=== PATIENT | male | born 1990 ===

== ENCOUNTER 2017-02-03 16:09 | Emergency (ER) | payer OTHER ==
[2017-02-03 16:24] VITALS: BP 116/68
--- NOTE | 2017-02-03 16:59 | UC ---
Skin Complaint HPI - HPI Summary HPI Summary: Patient has a earring on the left pinna. has had it for 3 years. It has been red and swollen for the past 2 days, redness is over the entire ear. very painful - History of Current Complaint Chief Complaint: UCSkin Stated Complaint: LEFT EAR PIERCING SITE ISSUE Hx Obtained From: Patient Onset/Duration: Sudden Onset, Lasting Days Skin Exposure Onset/Duration: Days Ago Timing: Constant Onset Severity: Moderate Current Severity: Severe Location: Discrete - left ear Character: Swelling, Pruritus, Pain Aggravating: Nothing Alleviating: Nothing Related History: Other: - piercing - Allergy/Home Medications Allergies/Adverse Reactions: Allergies Allergy/AdvReac Type Severity Reaction Status Date / Time Amoxicillin Allergy Shortness Verified 02/03/17 16:18 of Breath Aspirin Allergy See Comment Verified 02/03/17 16:18 Review of Systems Constitutional: Negative Skin: Other - infected pinna Eyes: Negative ENT: Negative Respiratory: Negative Cardiovascular: Negative Gastrointestinal: Negative Genitourinary: Negative Motor: Negative Neurovascular: Negative Musculoskeletal: Negative Neurological: Negative Psychological: Negative All Other Systems Reviewed And Are Negative: Yes PMH/Surg Hx/FS Hx/Imm Hx Previously Healthy: Yes - Surgical History Surgical History: Yes Surgery Procedure, Year, and Place: Ablation - Family History Known Family History: Negative: Cardiac Disease, Hypertension - Social History Alcohol Use: Weekly Alcohol Amount: Weekends Substance Use Type: None Smoking Status (MU): Current Every Day Smoker Amount Used/How Often: 1 ppd - Immunization History Most Recent Influenza Vaccination: NONE Most Recent Tetanus Shot: UNK Most Recent Pneumonia Vaccination: N/A Physical Exam Triage Information Reviewed: Yes Appearance: Well-Appearing, Well-Nourished, Pain Distress Vital Signs: Initial Vital Signs Temp 99.2 F 02/03/17 16:18 Pulse 71 02/03/17 16:18 Resp 18 02/03/17 16:18 BP 116/68 02/03/17 16:18 Pulse Ox 100 02/03/17 16:18 Vital Signs Reviewed: Yes Eye Exam: Normal Eyes: Positive: Conjunctiva Clear ENT: Positive: Pharynx normal, TMs normal, TM bulging, Other: - pinna of left ear, warm red and swollen Dental Exam: Normal Neck exam: Normal Neck: Positive: Supple, Nontender, No Lymphadenopathy Respiratory Exam: Normal Respiratory: Positive: Chest non-tender, Lungs clear, Normal breath sounds Cardiovascular Exam: Normal Cardiovascular: Positive: RRR, No Murmur, Pulses Normal Abdominal Exam: Normal Abdomen Description: Positive: Nontender, No Organomegaly, Soft Bowel Sounds: Positive: Present Musculoskeletal Exam: Normal Musculoskeletal: Positive: Strength Intact, ROM Intact, No Edema Neurological Exam: Normal Neurological: Positive: Alert, Muscle Tone Normal Psychological Exam: Normal Skin Exam: Normal Course/Dx - Course Course Of Treatment: hx obtained, exam performed, meds reviewed, i and d of ear abscess. wound culture obtained. - Differential Diagnoses - Skin Complaint Differential Diagnoses: Abscess - Diagnoses Provider Diagnoses: abscess on left ear Discharge - Discharge Plan Condition: Stable Disposition: HOME Patient Education Materials: Abscess (ED) Additional Instructions: take the medication as prescribed. keep the area clean and dry. continue to cover for the next few days until it stops draining. follow up if symptoms do not start to improve.
== END 2017-02-03 17:38 | disposition home or self-care (01) ==
LOC: UCCORT 16:09
DX: H60.02 Abscess of left external ear (principal); Z88.6 Allergy status to analgesic agent; Z88.1 Allergy status to other antibiotic agents; F17.210 Nicotine dependence, cigarettes, uncomplicated
CPT/HCPCS: 10060; 69000; 87070; 87076; 87205; 87640; 87641; 99202; G0463

== ENCOUNTER 2017-03-20 11:45 | Emergency (ER) | payer SELFPAY ==
[2017-03-20 13:08] VITALS: BP 117/72
--- NOTE | 2017-03-20 13:29 | UC ---
Back Pain HPI - HPI Summary HPI Summary: ONSET OF LOWER BACK PAIN YESTERDAY AFTER TWISTING HIS BODY WHILE AT WORK. PT IS A DOG DAYCARE PROVIDER. CONTINUED WORKING YESTERDAY AND TRIED TO GO AGAIN TODAY. NOW STATES HE HAS PAIN RADIATING DOWN BOTH LEGS. CAN NOT FEEL HIS LEGS - STATES THEY ARE TOTALLY NUMB. TYLENOL NOT HELPFUL. PAIN WORSE WITH MVMT AND BENDING OVER. BETTER IF LAYING SUPINE. - History of Current Complaint Chief Complaint: UCBackPain Stated Complaint: BACK PAIN-WC Time Seen by Provider: 03/20/17 13:15 Hx Obtained From: Patient Onset/Duration: Sudden Onset, Lasting Days, Still Present Timing: Constant Severity Initially: Moderate Severity Currently: Moderate Pain Intensity: 10 - WITH MOVEMENT Pain Scale Used: 0-10 Numeric Back Pain: Is Discrete @ - LOW BACK Character: Throbbing Aggravating: Walking Alleviating: Position - LAYING DOWN - Allergies/Home Medications Allergies/Adverse Reactions: Allergies Allergy/AdvReac Type Severity Reaction Status Date / Time Amoxicillin Allergy Shortness Verified 03/20/17 12:53 of Breath Aspirin Allergy See Comment Verified 03/20/17 12:53 Home Medications: Home Medications NK [No Home Medications Reported] 03/20/17 [History Confirmed 03/20/17] PMH/Surg Hx/FS Hx/Imm Hx Endocrine History Of: Denies: Diabetes, Thyroid Disease, Hyperthyroidism, Hypothyroidism, Dyslipidemia Cardiovascular History Of: Reports: Cardiac Disorders - 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[facility]) Denies: Hypertension, Pacemaker/ICD, Myocardial Infarction, Congestive Heart Failure, Atrial Fibrillation, Deep Vein Thrombosis, Bleeding Disorders Respiratory History Of: Denies: COPD, Asthma, Bronchitis, Pneumonia, Pulmonary Embolism GI/ History Of: Denies: Gastroesophageal Reflux, Ulcer, Gastrointestinal Bleed, Gall Bladder Disease, Kidney Stones, Diverticulitis, Renal Disease, Urosepsis Neurological History Of: Denies: TIA, CVA, Dementia, Seizures, Migraine Psychological History Of: Denies: Anxiety, Depression, Bipolar Disorder, Schizophrenia, Post Traumatic Stress Disorder Cancer History Of: Denies: Lung Cancer, Colorectal Cancer, Breast Cancer, Prostate Cancer, Cervical Cancer Other History Of: Negative For: HIV, Hepatitis B, Hepatitis C - Surgical History Surgical History: Yes Surgery Procedure, Year, and Place: Ablation surgery. Glass removed from abdomen as child - Family History Known Family History: Positive: Hypertension Negative: Cardiac Disease - Social History Alcohol Use: Occasionally Alcohol Amount: Weekends Substance Use Type: None Substance Use Comment - Amount & Last Used: maybe once yearly Smoking Status (MU): Heavy Every Day Tobacco Smoker Type: Cigarettes Amount Used/How Often: 1-1 1/2 pack daiy - Immunization History Most Recent Influenza Vaccination: NONE Most Recent Tetanus Shot: UTD Most Recent Pneumonia Vaccination: N/A Review of Systems Constitutional: Negative Respiratory: Negative Cardiovascular: Negative Gastrointestinal: Negative Musculoskeletal: Arthralgia, Decreased ROM, Myalgia All Other Systems Reviewed And Are Negative: Yes Physical Exam Triage Information Reviewed: Yes Appearance: Well-Appearing, No Pain Distress, Well-Nourished Vital Signs: Initial Vital Signs Temp 98.7 F 03/20/17 12:53 Pulse 63 03/20/17 12:53 Resp 16 03/20/17 12:53 BP 117/72 03/20/17 12:53 Pulse Ox 100 03/20/17 12:53 Vital Signs Reviewed: Yes Eyes: Positive: Conjunctiva Clear ENT: Positive: Hearing grossly normal Neck: Positive: Supple Respiratory: Positive: No respiratory distress, No accessory muscle use Cardiovascular: Positive: Pulses Normal Abdomen Description: Positive: Soft Musculoskeletal: Positive: No Edema, ROM Limited @ - BACK, Other: - PT MOVING VERY CAUTIOUSLY Neurological: Positive: Alert, Other: - UNABLE TO PERFORM STRAIGHT LEG RAISE DUE TO PT DISCOMFORT Psychological: Positive: Age Appropriate Behavior Skin: Negative: rashes Back Pain Course/Dx - Course Course Of Treatment: DUE TO PT LEVEL OF DISCOMFORT AND COMPLAINT OF LEG NUMBNESS WILL SEND TO ER FOR FURTHER EVAL. - Differential Dx/Diagnosis Provider Diagnoses: ACUTE LOW BACK PAIN/RADICULOPATHY - Physician Notifications Discussed Patient Care With: JONI COMER NP Time Discussed With Above Provider: 13:35 - TO [place] BY PRIVATE CAR Discharge - Discharge Plan Condition: Stable Disposition: AGAINST MEDICAL ADVICE Referrals: Erika Ivy MD [Primary Care Provider] -
== END 2017-03-20 13:54 | disposition left against medical advice (07) ==
LOC: UCCORT 11:45
DX: M54.5 Low back pain (principal); I45.6 Pre-excitation syndrome; F17.210 Nicotine dependence, cigarettes, uncomplicated; Z88.1 Allergy status to other antibiotic agents; Z88.6 Allergy status to analgesic agent
CPT/HCPCS: 99212; G0463

== ENCOUNTER 2017-12-01 11:22 | Emergency (ER) | payer OTHER ==
[2017-12-01 13:49] VITALS: BP 103/68
--- NOTE | 2017-12-01 14:02 | UC ---
Respiratory Complaint HPI - HPI Summary HPI Summary: cough x 2 days + chest congestion , sore throat, fever, chills, sever body aches - History of Current Complaint Chief Complaint: UCGI Stated Complaint: DIZZY/FATIGUE/NAUSEA Time Seen by Provider: 12/01/17 13:54 Hx Obtained From: Patient Onset/Duration: Gradual Onset, Lasting Days - 2, Still Present Timing: Constant Severity Initially: Severe Severity Currently: Severe Pain Intensity: 10 Character: Cough: Nonproductive Aggravating Factors: Exertion, Deep Breaths Alleviating Factors: Nothing Associated Signs And Symptoms: Positive: Fever, Chills, Dizziness, URI, Nasal Congestion. 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 Glass removed from abdomen as child - Family History Known Family History: Positive: None, Hypertension Negative: Cardiac Disease - Social History Alcohol Use: Weekly Alcohol Amount: Weekends Substance Use Type: None Substance Use Comment - Amount & Last Used: maybe once yearly Smoking Status (MU): Heavy Every Day Tobacco Smoker Type: Cigarettes Amount Used/How Often: 1-1 1/2 pack daiy - Immunization History Most Recent Influenza Vaccination: NONE Most Recent Tetanus Shot: UTD Most Recent Pneumonia Vaccination: N/A Review of Systems Constitutional: Fever, Chills, Fatigue Skin: Negative Eyes: Negative ENT: Sore Throat, Nasal Discharge Respiratory: Cough Cardiovascular: Negative Gastrointestinal: Negative Musculoskeletal: Arthralgia, Myalgia Neurological: Headache, Weakness Is Patient Immunocompromised?: No All Other Systems Reviewed And Are Negative: Yes Physical Exam Triage Information Reviewed: Yes Appearance: Well-Nourished, Pain Distress Vital Signs: Initial Vital Signs Temp 99.8 F 12/01/17 13:45 Pulse 100 12/01/17 13:45 Resp 18 12/01/17 13:45 BP 103/68 12/01/17 13:45 Pulse Ox 99 12/01/17 13:45 Vital Signs Reviewed: Yes Eyes: Positive: Conjunctiva Clear ENT: Positive: Normal ENT inspection, Hearing grossly normal, Pharyngeal erythema, Nasal drainage, TMs normal Neck: Positive: Supple, Nontender, No Lymphadenopathy Respiratory: Positive: Chest non-tender, Lungs clear, Normal breath sounds Cardiovascular: Positive: Tachycardia Abdominal Exam: Normal Abdomen Description: Positive: Nontender, Soft. Negative: CVA Tenderness (R), CVA Tenderness (L), Distended, Guarding Bowel Sounds: Positive: Present Skin Exam: Normal UC Diagnostic Evaluation - Laboratory O2 Sat by Pulse Oximetry: 99 Respiratory Course/Dx - Differential Dx/Diagnosis Provider Diagnoses: influenza Discharge - Discharge Plan Condition: Stable Disposition: HOME Prescriptions: Oseltamivir CAP* [Tamiflu CAP*] 75 mg PO BID #10 cap Patient Education Materials: Influenza (ED) Referrals: Erika Ivy MD [Primary Care Provider] - If Needed
== END 2017-12-01 14:02 | disposition home or self-care (01) ==
LOC: UCCORT 11:22
DX: J11.1 Influenza due to unidentified influenza virus with other respiratory manifestations (principal); F17.210 Nicotine dependence, cigarettes, uncomplicated
CPT/HCPCS: 99212; G0463

== ENCOUNTER 2020-01-11 09:36 | Emergency (ER) | payer OTHER ==
[2020-01-11 10:43] VITALS: BP 125/75
[2020-01-11 10:49] LABS: Influenza A Molecular Negative (Negative); Influenza B Molecular Negative (Negative)
--- OUTSIDE RECORDS SUMMARY | 2020-01-11 10:53 | XMS REPORT | Continuity of Care Document ---
:1990 External Reference #:[id number] Author Name Conchis Ledbetter M.D. Address [address] [place] [address] Problems Description No Information Available Social History Type Date Description Comments Sex Unknown ETOH Use Occasionally consumes alcohol Tobacco Use Start: Unknown Heavy tobacco smoker (more than 10 cigarettes/day) Recreational Drug Use Current Drug User Smoking Status Reviewed: 07/13/19 Heavy tobacco smoker (more than 10 cigarettes/day) Allergies, Adverse Reactions, Alerts Active Allergies Reaction Severity Comments Date Lara Aspirin 07/13/2019 Medications Active Medications SIG Qnty Indications Ordering Provider Date Cipro 1 tab by mouth 14tabs J01.40 Conchis Ledbetter, 11/18/2019 500mg Tablets twice a day M.D. Prednisone 2 tab by mouth 8tabs J01.40 Conchis Ledbetter, 11/18/2019 20mg Tablets daily 4 days M.D. Loratadine J30.9 Unknown 10mg Tablets History Medications Amoxicillin 2 by mouth 40tabs J32.9 Conchis Ledbetter, 07/22/2019 - 500mg twice a day M.D. 07/25/2019 Tablets Prednisone 2 tab by mouth 20tabs J32.9 Conchis Ledbetter, 07/22/2019 - 20mg Tablets daily 4 M.D. 07/25/2019 days,30x3d,20x2 d,10x7d Amoxicillin 2 by mouth 40tabs J32.9 Conchis Ledbetter, 07/13/2019 - 500mg twice a day M.D. 07/22/2019 Tablets Prednisone 2 tab by mouth 20tabs J32.9 Conchis Ledbetter, 07/13/2019 - 20mg Tablets daily 4 M.D. 07/21/2019 days,30x3d,20x2 d,10x7d Immunizations Description No Information Available Vital Signs Date Vital Result Comment 11/18/2019 1:02pm BP Systolic 118 mmHg BP Diastolic 65 mmHg Height 74 inches 6'2" Weight 172.00 lb BMI (Body Mass Index) 22.1 kg/m2 Heart Rate 85 /min Respiratory Rate 16 /min 07/13/2019 1:33pm BP Systolic 118 mmHg BP Diastolic 66 mmHg Height 74 inches 6'2" Weight 172.00 lb BMI (Body Mass Index) 22.1 kg/m2 Heart Rate 83 /min Body Temperature 97.2 F Respiratory Rate 16 /min Results Test Acquired Date Facility Test Result H/L Range Note CBC With Diff 07/13/2019 [facility] WBC 8.9 10*3/uL (4.1-11.0) [address] [facility] (607)- - RBC 4.73 10*6/uL (4.60-6.10) HGB 14.6 g/dL (13.5-18.0) HCT 42.5 % (41.0-53.0) MCV 89.7 fL (80.0-95.0) MCH 30.9 pg (27.0-32.0) MCHC 34.5 g/dL (32.0-36.0) RDW 12.9 % (10.5-14.5) PLT 216 10*3/uL (150-450) MPV 8.7 fL (7.1-10.7) Neut % 67.7 % (35.0-75.0) Lymph % 18.3 % (16.0-52.0) Wells % 9.6 % High (0.0-8.0) Eos % 3.9 % (0.0-5.0) Baso % 0.5 % (0.0-4.0) Neut # 6.0 10*3/uL (1.8-7.7) Lymph # 1.6 10*3/uL (1.2-4.8) Wells # 0.9 10*3/uL High (0.0-0.8) Eos # 0.3 10*3/uL (0.0-0.5) Baso # 0.0 10*3/uL (0.0-0.2) CMP 07/13/2019 [facility] Sodium 140 mmol/L (136-145) [address] [facility] (600)- - Potassium 4.4 mmol/L (3.6-5.2) Chloride 105 mmol/L (100-108) Co2 30 mmol/L (22-31) Anion Gap 5 mmol/L Low (7-16) Urea Nitrogen 10 mg/dL (7-24) Creatinine 0.82 mg/dL (0.80-1.30) BUN/Creat Ratio 12.2 RATIO (10.0-20.0) Glucose 71 mg/dL (70-99) Calcium 8.6 mg/dL (8.4-10.2) Total Protein 7.4 g/dL (6.4-8.2) Albumin 4.0 g/dL (3.5-4.6) Globulin 3.4 g/dL (2.7-4.3) Alb/Glob Ratio 1.2 RATIO Alkaline Phosphatase 90 U/L (45-117) Bilirubin,Total 0.3 mg/dL (0.0-1.0) Ast (Sgot) 18 U/L (11-39) Alt (SGPT) 26 U/L (12-78) GFR >60 ml/min/1.73m2 (>59) GFR ( Amer) >60 ml/min/1.73m2 (>59) GFR Interpretation <SEE NOTE> 1 Georgina By Ifa 07/13/2019 [facility] Homogeneous Pattern <50 2 [address] [facility] (190)- - Speckled Pattern <50 3 Peripheral Pattern <50 4 Nucleolar Pattern <50 5 Laboratory test 07/13/2019 [facility] Rheumatoid Factor <15 IU/mL (0- 15) finding [address] [facility] @ (606)- - TSH,Ultrasensitive @ 1.060 mIU/L (0.360-4.170) Free Thyroxine @ 1.20 ng/dL (0.76-1.46) Lyme Disease 07/13/2019 [facility] Lyme Igm/Igg AB @ NEGATIVE (Neg) 6 Antibodies Igg/Igm [address] [facility] (231)- - Thyroid Antibody 07/13/2019 [facility] Thyroglobulin AB @ <20 IU/mL (< 40) And Peroxidase [address] [facility] (793)- - Thyr Peroxidase AB @ <10 IU/mL (<35) Laboratory test finding 07/13/2019 [facility] Esr 6 mm/h (0-15) Clar[facility] (607)- - 25 Hydroxy Vit D @ 26 ng/mL Low (31-100) 7 1 NORMAL KIDNEY FUNCTION OR MILD DISEASE - GFR >OR= 60 CHRONIC KIDNEY DISEASE - GFR 15 - 59 RENAL FAILURE - GFR <15 Est. GFR calculation based on the MDRD study equation, which assumes a steady state for creatinine. Est. GFR should not be used for medication dosing. 2 Reference range: 0 to 49 Unit: 1/dil 3 Reference range: 0 to 49 Unit: 1/dil 4 Reference range: 0 to 49 Unit: 1/dil 5 Reference range: 0 to 49 Unit: 1/dil PERFORMED AT [facility], [address] [place] [address] 6 A Negative serologic test for Lyme Disease indicates no serologic evidence of infection with B burgdorferi at the time this specimen was collected. A repeat specimen should be collected in 2 to 4 weeks if clinically indicated. 7 A REVIEW OF THE LITERATURE SUGGESTS THE FOLLOWING RANGES FOR THE CLASSIFICATION OF 25-OH VITAMIN D STATUS: VITAMIN D STATUS 25-OH VITAMIN D DEFICIENCY <20 NG/ML INSUFFICIENCY 20-30 NG/ML SUFFICIENCY 31 - 100 NG/ML TOXICITY > 100 NG/ML A PEDIATRIC REFERENCE RANGE HAS NOT BEEN ESTABLISHED USING THIS METHOD. Procedures Date Code Description Status 11/18/2019 16265 Spirometry Completed 11/18/2019 59111 Tympanometry Completed 07/13/2019 25454 Visual Screening Test Completed 07/13/2019 26783 Audiometry, Bekesy, Screening Completed Medical Devices Description No Information Available Encounters Type Date Location Provider Dx Diagnosis Office Visit 11/18/2019 Conchis Funes, L20.9 Atopic dermatitis, 1:15p M.D. unspecified J30.9 Allergic rhinitis, unspecified F41.9 Anxiety disorder, unspecified F33.9 Major depressive disorder, recurrent, unspecified G47.00 Insomnia, unspecified F17.210 Nicotine dependence, cigarettes, uncomplicated H90.6 Mixed conductive and sensorineural hearing loss, bilateral R51 Headache J32.9 Chronic sinusitis, unspecified J44.9 Chronic obstructive pulmonary disease, unspecified M54.5 Low back pain M79.606 Pain in leg, unspecified M79.603 Pain in arm, unspecified R53.83 Other fatigue H52.13 Myopia, bilateral E55.9 Vitamin D deficiency, unspecified R06.02 Shortness of breath R05 Cough R09.81 Nasal congestion J01.40 Acute pansinusitis, unspecified K59.00 Constipation, unspecified Office Visit 07/13/2019 1:30p Conchis Funes, Z00.01 Encounter for general M.D. adult medical exam w abnormal findings L20.9 Atopic dermatitis, unspecified J30.9 Allergic rhinitis, unspecified F41.9 Anxiety disorder, unspecified F33.9 Major depressive disorder, recurrent, unspecified G47.00 Insomnia, unspecified F17.210 Nicotine dependence, cigarettes, uncomplicated R06.02 Shortness of breath H90.6 Mixed conductive and sensorineural hearing loss, bilateral R51 Headache J32.9 Chronic sinusitis, unspecified J44.9 Chronic obstructive pulmonary disease, unspecified M54.5 Low back pain M79.606 Pain in leg, unspecified M79.603 Pain in arm, unspecified R53.83 Other fatigue H52.13 Myopia, bilateral E55.9 Vitamin D deficiency, unspecified Assessments Date Code Description Provider 11/18/2019 L20.9 Atopic dermatitis, unspecified Conchis Ledbetter M.D. 11/18/2019 J30.9 Allergic rhinitis, unspecified Conchis Ledbetter M.D. 11/18/2019 F41.9 Anxiety disorder, unspecified Conchis Ledbettre M.D. 11/18/2019 F33.9 Major depressive disorder, recurrent, Conchis Ledbetter M.D. unspecified 11/18/2019 G47.00 Insomnia, unspecified Conchis Ledbetter M.D. 11/18/2019 F17.210 Nicotine dependence, cigarettes, Conchis Ledbetter M.D. uncomplicated 11/18/2019 H90.6 Mixed conductive and sensorineural hearing Conchis Ledbetter M.D. loss, bilateral 11/18/2019 R51 Headache Conchis Ledbetter M.D. 11/18/2019 J32.9 Chronic sinusitis, unspecified Conchis Ledbetter M.D. 11/18/2019 J44.9 Chronic obstructive pulmonary disease, Conchis Ledbetter M.D. unspecified 11/18/2019 M54.5 Low back pain Conchis Ledbetter M.D. 11/18/2019 M79.606 Pain in leg, unspecified Conchis Ledbetter M.D. 11/18/2019 M79.603 Pain in arm, unspecified Conchis Ledbetter M.D. 11/18/2019 R53.83 Other fatigue Conchis Ledbetter M.D. 11/18/2019 H52.13 Myopia, bilateral Conchis Ledbetter M.D. 11/18/2019 E55.9 Vitamin D deficiency, unspecified Conchis Ledbetter M.D. 11/18/2019 R06.02 Shortness of breath Conchis Ledbetter M.D. 11/18/2019 R05 Cough Conchis Ledbetter M.D. 11/18/2019 R09.81 Nasal congestion Conchis Ledbetter M.D. 11/18/2019 J01.40 Acute pansinusitis, unspecified Conchis Ledbetter M.D. 11/18/2019 K59.00 Constipation, unspecified Conchis Ledbetter M.D. 07/13/2019 Z00.01 Encounter for general adult medical Conchis Ledbetter M.D. examination with abnormal findings 07/13/2019 L20.9 Atopic dermatitis, unspecified Conchis Ledbetter M.D. 07/13/2019 J30.9 Allergic rhinitis, unspecified Conchis Ledbetter M.D. 07/13/2019 F41.9 Anxiety disorder, unspecified Conchis Ledbetter M.D. 07/13/2019 F33.9 Major depressive disorder, recurrent, Conchis Ledbetter M.D. unspecified 07/13/2019 G47.00 Insomnia, unspecified Conchis Ledbetter M.D. 07/13/2019 F17.210 Nicotine dependence, cigarettes, Conchis Ledbetter M.D. uncomplicated 07/13/2019 R06.02 Shortness of breath Conchis Ledbetter M.D. 07/13/2019 H90.6 Mixed conductive and sensorineural hearing Conchis Ledbetter M.D. loss, bilateral 07/13/2019 R51 Headache Conchis Ledbetter M.D. 07/13/2019 J32.9 Chronic sinusitis, unspecified Conchis Ledbetter M.D. 07/13/2019 J44.9 Chronic obstructive pulmonary disease, Conchis Ledbetter M.D. unspecified 07/13/2019 M54.5 Low back pain Conchis Ledbetter M.D. 07/13/2019 M79.606 Pain in leg, unspecified Conchis Ledbetter M.D. 07/13/2019 M79.603 Pain in arm, unspecified Conchis Ledbetter M.D. 07/13/2019 R53.83 Other fatigue Conchis Ledbetter M.D. 07/13/2019 H52.13 Myopia, bilateral Conchis Ledbetter M.D. 07/13/2019 E55.9 Vitamin D deficiency, unspecified Conchis Ledbetter M.D. Plan of Treatment 11/18/2019 - Conchis Ledbetter M.D.L20.9 Atopic dermatitis, unspecifiedComments: SKIN CARE INSTRUCTIONS EUCERIN CREAM OR BABY OIL 2-3 APPLICATION PER DAYUSE MOISTURIZING SOAPAVOID PROLONGED WATER EXPOSUREAVOID USING HOT WATER IN IPOXPNM54.9 Allergic rhinitis, unspecifiedComments:INCREASE PO FLUID USE ANTIHISTAMINE PRN SECOND HAND SMOKING AVOIDANCE SMOKING [id number] Anxiety disorder, unspecifiedComments:COUNCELLING AND REASSURANCE RELAXATION TECHNIQUESAVOID STRESSORS IN LIFE AVOID ALL ENERGY/HIGH CAFFEINE DRINKS DUR CSKYGGSK62.9 Major depressive disorder, recurrent, unspecifiedComments: COUNCELLING AND REASSURANCE RELAXATION TECHNIQUESAVOID STRESSORS IN LIFE AVOID ALL ENERGY/HIGH CAFFEINE [id number] Insomnia, unspecifiedComments:COUNCELLING AND REASSURANCE RELAXATION TECHNIQUESAVOID STRESSORS IN LIFE AVOID ALL ENERGY/ HIGH CAFFEINE ASGVKGT26.210 Nicotine dependence, cigarettes, uncomplicatedComments:SMOKING CESSATION COUNCELLING DISCUSSION RE: CESSATION OPTIONSPT INFORMED RE: NICOTINE PATCHES, CHANTIX, AND KRDTOU03.6 Mixed conductive and sensorineural hearing loss, bilateralComments:OBSERVE F/U WITH ENT PRN SMOKING [id number] HeadacheComments:TYLENOL OR MOTRIN PRNJ32.9 Chronic sinusitis, unspecifiedComments:INCREASE PO FLUID TYLENOL OR MOTRIN PRN USE ANTIHISTAMINE PRN SMOKING CESSATION [id number] Chronic obstructive pulmonary disease, unspecifiedComments:INCREASE PO FLUIDRESTSMOKING [id number] Low back painComments:EXERCISE/HEAT /MESSAGEAVOID HEAVY LIFTING WT LOSSTYLENOL OR MOTRIN PRN DUR VMUJWFLU64.606 Pain in leg, unspecifiedComments:TYLENOL OR MOTRIN PRN EXERCISE/HEAT/EUBHDWWJ49.603 Pain in arm, unspecifiedComments:TYLENOL OR MOTRIN PRN EXERCISE/HEAT/NTWXQRBD98.83 Other fatigueComments:INCRFEASE PO FLUIDCOUNCELLING AND REASSURANCE RESTH52.13 Myopia, bilateralComments:USE GLASSES/ CONTACTSF/U WITH [id number] Vitamin D deficiency, unspecifiedComments:INCREASE EXPOSURE TO SUNREVIEW OF DIETR06.02 Shortness of breathComments:INCREASE PO FLUIDRESTSMOKING [id number] XickwE16.81 Nasal ijhxqxlfajT46.40 Acute pansinusitis, unspecifiedNew Medication:Cipro 500 mg - 1 tab by mouth twice a dayPrednisone 20 mg - 2 tab by mouth daily 4 daysComments:INCREASE PO FLUIDTYLENOL OR MOTRIN PRN ANTIHISTAMINE PRNSMOKING CESSATION PIACUVFWQDDA80.00 Constipation, unspecifiedComments:MOM OR MIRALAX PRNHIGH FIBER DIETINCREASE PO FLUID Functional Status Description No Information Available Mental Status Description No Information Available Referrals Description No Information Available
--- NOTE | 2020-01-11 11:20 | UC ---
FLU HPI - HPI Summary HPI Summary: 29-year-old male comes in with a chief complaint of fevers chills bodyaches sore throat rhinorrhea and dry cough chest congestion for 3 days. Patient has taken some Tylenol which did help with symptoms. 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 No known specific contact Covid 19. Patient does not have asthma. - History of Current Complaint Chief Complaint: UCRespiratory Stated Complaint: FEVER,ST,HEAVY CHEST,COUGH Time Seen by Provider: 01/11/20 10:20 Pain Intensity: 8 - Allergy/Home Medications Allergies/Adverse Reactions: Allergies Allergy/AdvReac Type Severity Reaction Status Date / Time amoxicillin Allergy Shortness Verified 01/11/20 10:03 of Breath aspirin Allergy Itching Verified 01/11/20 10:03 Home Medications: Home Medications Acetaminophen TAB* [Tylenol TAB*] 650 mg PO Q4H PRN 01/11/20 [History Confirmed 01/11/20] Cephalexin CAP* [Keflex CAP*] 500 mg PO TID #30 cap 01/11/20 [Rx] PMH/Surg Hx/FS Hx/Imm Hx Previously Healthy: Yes Other History Of: Negative For: HIV, Hepatitis B, Hepatitis C - Surgical History Surgical History: Yes Surgery Procedure, Year, and Place: WPW Ablation, ~2003, [place]; Inguinal Herniarrhaphy and Testicular Torsion "as a baby" - Family History Known Family History: Positive: None, Hypertension Negative: Cardiac Disease - Social History Alcohol Use: Weekly Alcohol Amount: Weekends Substance Use Type: Marijuana Substance Use Comment - Amount & Last Used: "Rarely" Smoking Status (MU): Heavy Every Day Tobacco Smoker Type: Cigarettes Amount Used/How Often: ~1/4 PPD Length of Time of Smoking/Using Tobacco: Since Age 18 - Immunization History Most Recent Influenza Vaccination: NONE Most Recent Tetanus Shot: UTD Most Recent Pneumonia Vaccination: N/A Review of Systems All Other Systems Reviewed And Are Negative: Yes Constitutional: Positive: Fever, Chills, Other - SEE HPI Skin: Positive: Negative Eyes: Positive: Negative ENT: Positive: Sore Throat, Nasal Discharge, Sinus Congestion Respiratory: Positive: Shortness Of Breath, Cough Cardiovascular: Positive: Negative Gastrointestinal: Positive: Negative Motor: Positive: Negative Neurovascular: Positive: Negative Musculoskeletal: Positive: Myalgia Neurological/Mental Status: Positive: Negative Psychological: Positive: Negative Is Patient Immunocompromised?: No Physical Exam Triage Information Reviewed: Yes Appearance: No Pain Distress, Well-Nourished, Ill-Appearing - MILD Vital Signs: Initial Vital Signs Temp 98.2 F 01/11/20 10:00 Pulse 76 01/11/20 10:00 Resp 18 01/11/20 10:00 BP 125/75 01/11/20 10:00 Pulse Ox 98 01/11/20 10:00 Vital Signs Reviewed: Yes Eye Exam: Normal Eyes: Positive: Conjunctiva Clear ENT: Positive: Pharyngeal erythema, Nasal congestion, Nasal drainage, TMs normal Neck: Positive: Supple Respiratory: Positive: Lungs clear, Normal breath sounds, No respiratory distress Cardiovascular: Positive: RRR Musculoskeletal: Positive: Strength Intact, ROM Intact Neurological: Positive: Alert, Muscle Tone Normal Psychological: Positive: Age Appropriate Behavior Skin Exam: Normal Flu Course/Dx - Course Course Of Treatment: DISCUSSED VIRAL VERSES BACTERIAL INFECTIONS AND THE ROLE OF ANTIBIOTICS. THE PATIENT PREFERS TO BE ON ANTIBIOTICS AT THIS TIME. - Differential Dx/Diagnosis Provider Diagnosis: Influenza-like illness, Pharyngitis Discharge ED - Sign-Out/Discharge Documenting (check all that apply): Patient Departure All imaging exams completed and their final reports reviewed: No Studies - Discharge Plan Condition: Stable Disposition: HOME Prescriptions: Cephalexin CAP* [Keflex CAP*] 500 mg PO TID #30 cap Patient Education Materials: Pharyngitis (ED), Fever in Adults (ED) Referrals: Conchis Ledbetter MD [Primary Care Provider] - Additional Instructions: MAINTAIN AT HOME ISOLATION. THE HEALTH DEPARTMENT WILL CONTACT YOU. IF YOU HAVE NOT HEARD FROM THEM BY TOMORROW, CONTACT THEM. FOLLOW UP WITH YOUR DOCTOR IF NOT COMPLETELY IMPROVED. GO TO THE EMERGENCY DEPARTMENT IF WORSE OR ANY QUESTIONS OR CONCERNS. - Billing Disposition and Condition Condition: STABLE Disposition: Home
--- NOTE | 2020-01-14 07:15 | UC ---
- Progress Note Progress Note: please call the pt. negative COVID19 Course/Dx - Diagnoses Provider Diagnoses: Influenza-like illness, Pharyngitis Discharge ED - Sign-Out/Discharge Documenting (check all that apply): Patient Departure All imaging exams completed and their final reports reviewed: No Studies - Discharge Plan Condition: Stable Disposition: HOME Prescriptions: Cephalexin CAP* [Keflex CAP*] 500 mg PO TID #30 cap Patient Education Materials: Pharyngitis (ED), Fever in Adults (ED) Referrals: Conchis Ledbetter MD [Primary Care Provider] - Additional Instructions: MAINTAIN AT HOME ISOLATION. THE HEALTH DEPARTMENT WILL CONTACT YOU. IF YOU HAVE NOT HEARD FROM THEM BY TOMORROW, CONTACT THEM. FOLLOW UP WITH YOUR DOCTOR IF NOT COMPLETELY IMPROVED. GO TO THE EMERGENCY DEPARTMENT IF WORSE OR ANY QUESTIONS OR CONCERNS. - Billing Disposition and Condition Condition: STABLE Disposition: Home
== END 2020-01-11 11:35 | disposition home or self-care (01) ==
LOC: UCCORT 09:36
DX: J11.1 Influenza due to unidentified influenza virus with other respiratory manifestations (principal); F17.210 Nicotine dependence, cigarettes, uncomplicated; Z88.0 Allergy status to penicillin; Z88.6 Allergy status to analgesic agent
CPT/HCPCS: 87651; 99212; G0463; U0002